=== PATIENT | female | born 2000 | race Caucasian/White ===

== ENCOUNTER → 2020-11-08 14:16 | Outpatient (BNVA) | payer BC, SELFPAY | PROVIDERS: PCP Pediatrics; Visit Provider Student in an Organized Health Care Education/Training Program ==

== ENCOUNTER 2020-11-16 12:49 | Outpatient (REF) | payer BC, SELFPAY ==
--- NOTE | ~2020-11-16 | XR_ITS ---
EXAMINATION: XR LUMBOSACRAL SPINE CLINICAL INFORMATION: Diffuse joint pain COMPARISON: None TECHNIQUE: Three views of the lumbosacral spine. FINDINGS: There is normal lumbar segmentation with 5 nonrib-bearing lumbar vertebrae of normal height. There is a levocurvature thoracolumbar spine with normal lumbar lordosis. There is no lumbar vertebral compression, spondylolisthesis, or disc space narrowing. No erosive change. The SI joints and visualized sacrum are unremarkable. There is an IUD seen overlying the pelvis just right of midline. XR/XR lumbar spine 2-3V IMPRESSION: 1. Levocurvature thoracolumbar spine. 2. No lumbar vertebral compression, spondylolisthesis, or destructive process.
--- NOTE | ~2020-11-16 | XR_ITS ---
EXAMINATION: XR HAND, RIGHT XR HAND, LEFT CLINICAL INFORMATION: Diffuse joint pain. COMPARISON: Radiographs lumbar spine 11/16/2020 TECHNIQUE: Each hand is imaged in 3 views. There are a total of 6 views. FINDINGS: Right: There is normal bony mineralization. There is no fracture, dislocation, destructive process. There is ulnar impingement syndrome with short ulnar and pressure erosion just proximal to the sigmoid notch medial side distal radius. The carpus is otherwise unremarkable with no joint narrowing or erosive change or chondrocalcinosis. The MCP and interphalangeal joints are unremarkable. No joint narrowing or erosive change. Soft tissues are unremarkable. Left: There is normal bony mineralization. There is no fracture, dislocation, destructive process. There is ulnar impingement syndrome with short ulnar and pressure erosion just proximal to the sigmoid notch medial side distal radius. The finding is similar to that on the contralateral right. The carpus is otherwise unremarkable with no joint narrowing or erosive change or chondrocalcinosis. The MCP and interphalangeal joints are unremarkable. No joint narrowing or erosive change. Soft tissues are unremarkable. XR/XR hand RT min 3V IMPRESSION: 1. Bilateral symmetric ulnar impingement syndrome. 2. No joint narrowing or erosive changes.
--- NOTE | ~2020-11-16 | XR_ITS ---
EXAMINATION: XR HAND, RIGHT XR HAND, LEFT CLINICAL INFORMATION: Diffuse joint pain. COMPARISON: Radiographs lumbar spine 11/16/2020 TECHNIQUE: Each hand is imaged in 3 views. There are a total of 6 views. FINDINGS: Right: There is normal bony mineralization. There is no fracture, dislocation, destructive process. There is ulnar impingement syndrome with short ulnar and pressure erosion just proximal to the sigmoid notch medial side distal radius. The carpus is otherwise unremarkable with no joint narrowing or erosive change or chondrocalcinosis. The MCP and interphalangeal joints are unremarkable. No joint narrowing or erosive change. Soft tissues are unremarkable. Left: There is normal bony mineralization. There is no fracture, dislocation, destructive process. There is ulnar impingement syndrome with short ulnar and pressure erosion just proximal to the sigmoid notch medial side distal radius. The finding is similar to that on the contralateral right. The carpus is otherwise unremarkable with no joint narrowing or erosive change or chondrocalcinosis. The MCP and interphalangeal joints are unremarkable. No joint narrowing or erosive change. Soft tissues are unremarkable. XR/XR hand LT min 3V IMPRESSION: 1. Bilateral symmetric ulnar impingement syndrome. 2. No joint narrowing or erosive changes.
[2020-11-16 14:03] LABS: Hemoglobin 10.7 g/dl (12.0-16.0); Neutrophils Percent Auto 72.5 % (45-73)
[2020-11-16 14:05] LABS: Basophils Absolute Auto 0.1 X10*3/uL (0.0-0.2); Basophils Percent Auto 0.5 % (0-2); Eosinophils Absolute Auto 0.1 X10*3/uL (0.0-0.4); Imm Gran Abs Auto 0.05 X10*3/uL (0.00-0.03); Imm Gran Pct Auto 0.5 % (0.0-0.4); Lymphocytes Absolute Auto 2.3 X10*3/uL (1.2-4.9); Lymphocytes Percent Auto 21.7 % (20-40); Mean Corpuscular HGB Conc 29.7 g/dl (31.0-35.0); Mean Corpuscular Hemoglobin 19.3 pg (27.0-33.0); Monocytes Absolute Auto 0.4 X10*3/uL (0.1-1.2); Monocytes Percent Auto 3.8 % (2-11); Neutrophils Absolute Auto 7.7 X10*3/uL (2.0-8.3); Platelet Count 211 X10*3/uL (160-400); Red Blood Count 5.55 X10*6/uL (4.20-5.50); Red Cell Distribution Width 18.6 % (11.0-16.0); White Blood Count 10.7 X10*3/uL (4.8-10.8)
[2020-11-16 14:10] LABS: Mean Corpuscular Volume 64.9 fL (80-98)
[2020-11-16 14:23] LABS: Alanine Aminotransferase 16 U/L (0-31); Alkaline Phosphatase 64 U/L (39-117); Anion Gap 11 (12-20); Aspartate Amino Transferase 11 U/L (5-31); Bilirubin Total 0.5 mg/dL (0.0-1.0); Blood Urea Nitrogen 15 mg/dL (9-16); C Reactive Protein 0.92 mg/dL (< or = 0.50); Calcium 8.9 mg/dL (8.4-10.2); Carbon Dioxide 22 mmol/L (22-29); Chloride 109 mmol/L (96-108); Estimated Glomerular Filt Rate > 60; Glucose Random 73 mg/dL (60-115); Potassium 3.7 mmol/L (3.3-5.1); Rheumatoid Factor < 15.0 IU/mL (<15.0); Sodium 138 mmol/L (135-145); Total Protein 7.1 g/dL (6.5-8.0)
[2020-11-16 14:43] LABS: Erythrocyte Sedimentation Rate 9 MM/HR (0-20)
[2020-11-16 14:47] LABS: Thyroid Stimulating Hormone 2.57 uIU/mL (0.32-4.0)
[2020-11-17 13:57] LABS: Antibody to SS-A Antigen <1.0 NEG AI (<1.0 NEG); Antibody to SS-B Antigen <1.0 NEG AI (<1.0 NEG)
[2020-11-18 00:06] LABS: Anti Nuclear Antibody Screen POSITIVE (NEGATIVE)
[2020-11-21 12:21] LABS: Cyclic Citrullinated Peptide <16 UNITS
[2020-11-25 14:02] LABS: Vitamin D 25-OH, D2 <4 ng/mL; Vitamin D 25-OH, D3 23 ng/mL; Vitamin D 25-OH, Total 23 ng/mL (30-100)
== END 2020-11-16 12:50 | disposition home or self-care (01) ==
LOC: HO.LAB 12:49
PROVIDERS: PCP Pediatrics; Visit Provider Student in an Organized Health Care Education/Training Program
DX: M25.50 Pain in unspecified joint (principal)
CPT/HCPCS: 36415; 72100; 73130; 80053; 82306; 84443; 85025; 85652; 86038; 86039; 86140; 86200; 86235; 86431

== ENCOUNTER 2020-11-18 15:01 | Outpatient (REF) | payer BC, SELFPAY ==
[2020-11-18 16:30] LABS: Glucose Urine UA NEG (NEG); Leukocyte Esterase Urine NEG (NEG); Nitrite Urine NEG (NEG); Specific Gravity - Urine 1.025 (1.005-1.025); Urine Blood NEG (NEG); Urine Ketones NEG (NEG); Urine Protein NEG (NEG-TRACE)
[2020-11-18 16:32] LABS: Appearance Urine HAZY; Color Urine YELLOW
[2020-11-18 16:44] LABS: Bacteria Urine TRACE /LPF; Mucus Urine 3+ /LPF; RBC Urine 0-2 /HPF (0); Squamous Epithelial Cell Urine 2+ /LPF; WBC Urine 0-2 /HPF (0-4)
[2020-11-21 13:11] LABS: Anti DNA DS Antibody 1 IU/mL; SM/Ribonucleoprotein Ab <1.0 NEG AI (<1.0 NEG); Smith Protein <1.0 NEG AI (<1.0 NEG)
[2020-11-21 14:52] LABS: Complement C3 149 mg/dL (83-193); Thyroglobulin Antibodies <1 IU/mL (< or = 1); Thyroid Peroxidase Antibodies 1 IU/mL (<9)
== END 2020-11-18 15:02 | disposition home or self-care (01) ==
LOC: HO.LAB 15:01
PROVIDERS: PCP Pediatrics; Visit Provider Student in an Organized Health Care Education/Training Program
DX: R76.8 Other specified abnormal immunological findings in serum (principal)
CPT/HCPCS: 36415; 81001; 86160; 86225; 86235; 86376; 86800

== ENCOUNTER → 2020-11-25 15:05 | Outpatient (BNVA) | payer BC, SELFPAY | PROVIDERS: PCP Pediatrics; Visit Provider Student in an Organized Health Care Education/Training Program ==

== ENCOUNTER 2020-12-05 12:11 | Outpatient (REF) | payer BC, SELFPAY ==
[2020-12-05 13:50] LABS: INTERNATIONAL NORM RATIO 1.1 (0.9-1.1); Prothrombin Time 13.5 SEC (10.8-13.0)
== END 2020-12-05 12:12 | disposition home or self-care (01) ==
LOC: HO.LAB 12:11
PROVIDERS: PCP Pediatrics; Visit Provider Psychiatry & Neurology Neurology
DX: G93.2 Benign intracranial hypertension (principal)
CPT/HCPCS: 36415; 85610

== ENCOUNTER 2020-12-08 09:23 | Day surgery (SDC) | payer BC, SELFPAY ==
--- NOTE | ~2020-12-08 | FL_ITS ---
EXAMINATION: XR LUMBAR PUNCTURE CLINICAL INFORMATION: Idiopathic intracranial hypertension. Pseudotumor cerebri. COMPARISON: None TECHNIQUE: Following explaining fluoroscopy-guided lumbar puncture procedure, benefits and risk, a written consent was obtained. Patient was placed prone on fluoroscopy table, and low back area was cleaned and draped in the usual sterile manner. 1% lidocaine was injected at puncture site. A 6-inch 20-gauge spinal needle was then advanced from a left-sided approach intrathecally at the L3-L4 disc level. The stylet was removed and after observing fluid return, patient was quickly placed in left lateral decubitus view, and opening CSF pressure was obtained. Fluid was then collected in 4 test tubes. Stylet was reintroduced and needle withdrawn. Complete hemostasis achieved at puncture site. Simple band-aid applied at the puncture site. Patient tolerated procedure extremely well. FINDINGS: Visualized vertebral heights and alignment is normal. The disc heights are preserved. Needle visualized intrathecally at the L3-L4 disc level. Opening CSF pressure measures 24 cm of water. Approximately 15 mL of clear CSF fluid collected. FLUOROSCOPY TIME: 0.9 minutes DOSE AREA PRODUCT: 8.766 uGy-m2 (microgray-meter squared) FL/FL guided lumbar puncture LP IMPRESSION: Successful ultrasound-guided lumbar puncture performed. There is elevated CSF pressure measuring 24 cm of water.
[2020-12-08 09:50] VITALS: BMI 48.9
[2020-12-08 10:20] LABS: Glucose, Whole Blood 89 mg/dL (60-115)
[2020-12-08 10:34] LABS: UPreg QC Valid YES; Urine Pregnancy NEGATIVE (NEGATIVE)
[2020-12-08 10:39] LABS: MANUAL DIFF FLAG NO
[2020-12-08 10:46] LABS: Basophils Percent Auto 0.4 % (0-2); Eosinophils Absolute Auto 0.1 X10*3/uL (0.0-0.4); Eosinophils Percent Auto 0.8 % (0-4); Hematocrit 34.6 % (37-47); Hemoglobin 10.4 g/dl (12.0-16.0); Imm Gran Abs Auto 0.03 X10*3/uL (0.00-0.03); Imm Gran Pct Auto 0.4 % (0.0-0.4); Lymphocytes Absolute Auto 1.5 X10*3/uL (1.2-4.9); Lymphocytes Percent Auto 18.8 % (20-40); Mean Corpuscular HGB Conc 30.1 g/dl (31.0-35.0); Mean Corpuscular Hemoglobin 19.2 pg (27.0-33.0); Mean Corpuscular Volume 63.7 fL (80-98); Monocytes Absolute Auto 0.3 X10*3/uL (0.1-1.2); Monocytes Percent Auto 3.4 % (2-11); Neutrophils Absolute Auto 6.1 X10*3/uL (2.0-8.3); Neutrophils Percent Auto 76.2 % (45-73); Platelet Count 210 X10*3/uL (160-400); Red Blood Count 5.43 X10*6/uL (4.20-5.50); Red Cell Distribution Width 18.9 % (11.0-16.0)
[2020-12-08 10:51] LABS: INTERNATIONAL NORM RATIO 1.1 (0.9-1.1); Prothrombin Time 12.6 SEC (10.8-13.0)
[2020-12-08 12:20] VITALS: BP 116/58; PULSE 64; RESP 20; TEMP 36.8; O2SAT 99
[2020-12-08 12:50] VITALS: BP 120/60; PULSE 66; RESP 20; O2SAT 97
[2020-12-08 13:13] LABS: CSF Appearance Clear, Colorless; CSF Tube # 3
[2020-12-08] MEDS: Acetaminophen 325 MG TABLET 975 MG PO (13:15)
[2020-12-08 13:20] VITALS: BP 102/57; PULSE 70; RESP 20; O2SAT 98
[2020-12-08 13:22] LABS: Glucose CSF 53 mg/dL; Total Protein CSF 28.9 mg/dL (15-45)
[2020-12-08 13:38] LABS: Appearance CSF CLEAR; CSF Tube # 4; Color CSF COLORLESS
[2020-12-08 13:39] LABS: CSF Monos 0 %; CSF Other Cells % 0 %; Lymphocytes CSF 0 %; Neutrophils CSF 0 %; Red Blood Cell CSF 0 MM*3; White Blood Cell CSF 0 MM*3
[2020-12-08 13:50] VITALS: BP 116/69; PULSE 76; RESP 20; O2SAT 98
[2020-12-08 14:10] VITALS: BP 132/58; PULSE 75; RESP 18; O2SAT 98
[2020-12-08 15:10] VITALS: BP 119/61; PULSE 78; RESP 18; TEMP 37.7; O2SAT 97
== END 2020-12-08 15:25 | disposition home or self-care (01) ==
LOC: HO.SSS 09:23
PROVIDERS: Psychiatry & Neurology Neurology; PCP Pediatrics; Visit Provider Radiology Diagnostic Radiology
PROC: 009U3ZZ Drainage of Spinal Canal, Percutaneous Approach (ICD-10-PCS; CPT 62270; principal; 2020-12-08 11:00)
DX: G93.2 Benign intracranial hypertension (principal); H47.10 Unspecified papilledema; F41.8 Other specified anxiety disorders; E66.9 Obesity, unspecified
CPT/HCPCS: 36415; 62328; 81025; 82945; 82947; 84157; 85025; 85610; 85730; 87015; 87070; 87205; 89051

== ENCOUNTER → 2020-12-30 14:18 | Outpatient (BNVA) | payer BC, SELFPAY | PROVIDERS: PCP Pediatrics; Visit Provider Physician Assistant ==

== ENCOUNTER → 2021-01-17 08:09 | Outpatient (BNVA) | payer BC, SELFPAY | PROVIDERS: PCP Pediatrics; Visit Provider Dietitian, Registered | DX: E66.01 Morbid (severe) obesity due to excess calories (principal) | CPT/HCPCS: 97802 ==

== ENCOUNTER → 2021-03-01 07:23 | Outpatient (BNVA) | payer BC, SELFPAY | PROVIDERS: PCP Pediatrics; Visit Provider Surgery ==

== ENCOUNTER → 2021-03-15 08:06 | Outpatient (BNVA) | payer BC, SELFPAY | PROVIDERS: PCP Pediatrics; Visit Provider Dietitian, Registered | DX: E66.01 Morbid (severe) obesity due to excess calories (principal) | CPT/HCPCS: 97803 ==